=== PATIENT | female | born 1985 | race Caucasian/White ===

== ENCOUNTER 2017-11-27 07:41 | Inpatient (IN) | payer OTHER ==
[~2017-11-27] VITALS: Ht 165.1 cm; Wt 72.7 kg
[2017-11-27] VITALS (24 sets, daily range): BP systolic 99–168; BP diastolic 56–105; PULSE 72–127; TEMP 97.4–98.5
[~2017-11-27 07:41] MED LIST: PRENATAL1 TA1 PO; ROBUTUSSIN PO; TYLENOL PM PO; ZANTAC 150MG T150 MG PO
[2017-11-27] MEDS ORDERED: CELEXA10 MG PO (08:02)
[2017-11-27 08:54] LABS: BASO % 0.2 % (0.0-2.0); EOS # 0.1 (0.0-0.7); GRAN % 67.9 % (42.2-75.2); LYMPH # 2.1 (1.2-3.4); MEAN CELL VOLUME 87 fl (80.0-100.0); MEAN CORPUSCULAR HGB CONC 33 g/dl (33.0-37.0); MEAN PLATELET VOLUME 13.4 fl (7.4-10.4); MONO # 0.6 (0.1-0.6); MONO % 6.3 % (1.7-9.3); PLATELET COUNT 138 K/mm3 (130-400); REDCELL DISTRIBUTION WIDTH-CV 12.7 % (11.5-14.5)
[2017-11-27 08:59] LABS: HEMATOCRIT 34.8 % (37.0-47.0); HEMOGLOBIN 11.4 g/dl (12.5-16.0); MEAN CORPUSCULAR HEMOGLOBIN 29 pg (27.0-31.0)
[2017-11-27 09:02] LABS: ALBUMIN 3.3 gm/dL (3.5-5.0); BILIRUBIN,TOTAL 0.2 mg/dL (0.0-1.0); CALCIUM 8.5 mg/dL (8.4-10.2); CREATININE, serum 0.7 mg/dL (0.52-1.25); POTASSIUM 4.1 mmol/L (3.4-5.0); TOTAL PROTEIN 6.7 gm/dL (6.4-8.2)
[2017-11-28 01:10] VITALS: BP 126/80; PULSE 70; TEMP 97.7
[2017-11-28 05:25] VITALS: BP 148/84; PULSE 64; TEMP 97.6
[2017-11-28 08:00] VITALS: BP 144/88; PULSE 72
[2017-11-28] MEDS ORDERED: MOTRIN 600600 MG/TAB PO (09:56)
[2017-11-28] MEDS ORDERED: PERCOCET 325 MG1 TA2 PO (09:57)
[2017-11-28 16:40] VITALS: BP 128/78; PULSE 77; TEMP 98.1
== END 2017-11-28 19:10 | disposition home or self-care (01) | DRG 775 ==
LOC: LDRO 07:41 → LDR 08:10 → OB 08:10 → EDSTATUS 12-04 07:39 → LDR 12-04 16:46
PROVIDERS: Obstetrics & Gynecology
PROC: 10E0XZZ Delivery of Products of Conception, External Approach (ICD-10-PCS; principal; 2017-11-27)
PROC: 0KQM0ZZ Repair Perineum Muscle, Open Approach (ICD-10-PCS; 2017-11-27)
DX: O69.1XX0 Labor and delivery complicated by cord around neck, with compression, not applicable or unspecified (principal); O70.1 Second degree perineal laceration during delivery; Z3A.38 38 weeks gestation of pregnancy; Z37.0 Single live birth
CPT/HCPCS: J2590; J7120